=== PATIENT | female | born 1945 | race Caucasian/White ===

== ENCOUNTER 2018-11-19 08:06 | Day surgery (SDC) | payer MEDICARE ==
[~2018-11-19 08:06] MED LIST: ABAT250V; ASPI81CH PO; CALCAVITD PO; ESOM20; HYDACE5 PO; LISHYD1012 PO; LORA10 PO; NAPR500 PO; OXYB5 PO; PROM25 PO
== END 2018-11-19 23:18 | disposition home or self-care (01) ==
LOC: MOI MAM 08:06 → MOI US 08:06
DX: N60.02 Solitary cyst of left breast (principal)
CPT/HCPCS: 19000; 76942; 88108

== ENCOUNTER → 2023-01-31 | Outpatient (CLI) | payer MEDICARE, OTHER ==
[2023-01-31 14:33] LABS: Source, Urine Clean Catch
[2023-01-31 18:36] LABS: Appearance, Urine Clear (Clear); Bilirubin, Urine Neg (Neg); Blood, Urine Neg (Neg); Color, Urine Yellow (P-Yellow); Glucose Qualitative, Urine Neg (Neg); Ketones, Urine Neg (Neg); Leukocyte Esterase, Urine Neg (Neg); Nitrite, Urine Neg (Neg); Protein, Urine Neg (Neg); Urobilinogen, Urine NORM (Normal)
== END | disposition home or self-care (01) ==
LOC: LAB 05:40 → LAB SHORT 05:40 → EDSTATUS 10:01
PROVIDERS: Nurse Practitioner Family
DX: I10 Essential (primary) hypertension (principal)
CPT/HCPCS: 81003